=== PATIENT | male | born 1965 | race Caucasian/White ===

== ENCOUNTER 2021-11-15 13:48 | Outpatient (CLI) | payer BC | END 2021-11-15 13:49 | disposition home or self-care (01) | LOC: CSHCT 13:48 | PROVIDERS: ATTEND Neurological Surgery | DX: M54.2 Cervicalgia (principal); Z98.890 Other specified postprocedural states | CPT/HCPCS: 70498 ==

== ENCOUNTER 2022-03-13 08:29 | Outpatient (CLI) | payer BC ==
[2022-03-13 20:28] LABS: SARS-CoV-2 PCR by NAA Not Detected (NotDetected)
== END 2022-03-13 08:30 | disposition home or self-care (01) ==
LOC: CSHLAB 08:29
PROVIDERS: ATTEND Family Medicine
DX: Z20.822 Contact with and (suspected) exposure to COVID-19 (principal)
CPT/HCPCS: U0003; U0005

== ENCOUNTER 2024-06-19 08:16 | Outpatient (CLI) | payer BC ==
[2024-06-19 08:37] VITALS: BP 152/86; TEMP 98.3
== END 2024-06-19 10:00 | disposition home or self-care (01) ==
LOC: CSHRAD 08:16
PROVIDERS: ATTEND Nurse Practitioner Family
DX: M47.22 Other spondylosis with radiculopathy, cervical region (principal); Z98.890 Other specified postprocedural states; M48.02 Spinal stenosis, cervical region
CPT/HCPCS: 62284; 72050; 72126; 77003